=== PATIENT | female | born 1995 | race Caucasian/White ===

== ENCOUNTER 2025-08-10 09:13 | Emergency (ER) | payer OTHER ==
[~2025-08-10] VITALS: Ht 165.1 cm; Wt 95.0 kg
[2025-08-10 09:35] VITALS: BP 121/78; PULSE 88; RESP 16; TEMP 98.2; O2SAT 98
[2025-08-10 09:49] LABS: COVID AG,FIA SOURCE NASAL SWAB
[2025-08-10] MEDS ORDERED: ACET-66 PO (10:15)
[2025-08-10] MEDS ORDERED: PSEU-191 PO (10:15)
[2025-08-10] MEDS ORDERED: IBUP-1554 PO (10:15)
[2025-08-10 10:35] LABS: INFLUENZA TYPE A NEGATIVE FOR TYPE A (NEGATIVE); INFLUENZA TYPE B NEGATIVE FOR TYPE B (NEGATIVE); SARS-COV2 (COVID) ANTIGEN,FIA Negative (Negative)
== END 2025-08-10 10:26 | disposition home or self-care (01) ==
LOC: EMS 09:13
DX: H66.91 Otitis media, unspecified, right ear (principal); R09.81 Nasal congestion; Z91.09 Other allergy status, other than to drugs and biological substances; Z20.822 Contact with and (suspected) exposure to COVID-19
CPT/HCPCS: 87804; 99283